=== PATIENT | female | born 1935 ===

== ENCOUNTER 2019-06-16 10:35 | Outpatient (REF) | payer MEDICARE, SELFPAY ==
[2019-06-16 20:59] LABS: Anion Gap 9.9 mmol/L (3-11); BUN 21 mg/dL (7-18); CO2 25.1 mmol/L (21.0-32.0); COMMENT (LAB VIEW ONLY) 128.72 mg/dL; CREATININE 0.87 mg/dL (0.55-1.02); Calcium 9.5 mg/dL (8.5-10.1); Calculated LDL 115 mg/dL; Chloride 104 mmol/L (98-107); Cholesterol 187 mg/dL (<200); Glucose 146 mg/dL (74-106); HDL Cholesterol 44 mg/dL (40-60); Microalb ug/mg Crea 23.8 ug/mg Cr; Potassium 4.3 mmol/L (3.5-5.1); Sodium 139 mmol/L (136-145); Triglyceride 140 mg/dL (<150)
== END 2019-06-16 10:55 ==
LOC: NCHCN 10:35
PROVIDERS: PCP Internal Medicine; Visit Provider Internal Medicine
DX: I10 Essential (primary) hypertension (principal)
CPT/HCPCS: 80048; 80061; 82043; 82570